=== PATIENT | female | born 1955 | race Hispanic/Latino ===

== ENCOUNTER 2018-05-16 14:58 | Emergency (ER) | payer SELFPAY ==
--- NOTE | 2018-05-16 16:02 | CT ---
HEAD CT WITHOUT CONTRAST: 05/16/18 HISTORY: Trauma. Patient had a TV box fall on her head. COMPARISON: None. FINDINGS: No parenchymal hemorrhage. No extra-axial hematoma. No midline shift. Basilar cisterns are patent. Br ain volume is age appropriate. Cortical henry-white matter differentiation is preserved. Ventricles and sulci are patent and symmetric. Calvarium is intact. Adequate aeration of the sinuses and mastoid air cells. IMPRESSION: No intracranial posttraumatic sequela. POS: [facility]
--- NOTE | 2018-05-16 16:06 | CT ---
CERVICAL SPINE CT WITHOUT CONTRAST: 05/16/18 HISTORY: Trauma. Pain. COMPARISON: None. FINDINGS: No craniocervical dissociation. Lateral masses of C1 and C2 articulate appropriately. Intact odontoid process. The visualized soft tissue neck structures are grossly unremarkable. Upper mediastinum and lung apice s are unremarkable. No significant central canal stenosis or neural foraminal narrowing. Straightening of the normal cerv ical lordosis is presumed to be due to patient position, muscle spasm or cervical collar. Current lisa dy is not tailored to assess for ligamentous injury. Cervical spine vertebral body height is maintained. No fracture. IMPRESSION: No fracture. POS: [facility]
--- NOTE | 2018-05-16 16:14 | CT ---
CT OF THE THORACIC SPINE WITHOUT CONTRAST: 05/16/18 INDICATION: History of trauma where a TV fell on the patient's head 45 minutes prior to arrival. The patient is h aving back pain. COMPARISON: None. 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 No acute fracture or subluxation is evident. The osseous central canal and osseous neural foramina appear patent. There are mild vascular calcific ations incidentally seen involving the thoracic aorta. The visualized lungs are clear. There is diffu se osteopenia. IMPRESSION: No acute osseous abnormality. POS: [facility]
== END 2018-05-16 16:27 | disposition home or self-care (01) ==
LOC: BURERS 14:58
DX: S09.90XA Unspecified injury of head, initial encounter (principal); S16.1XXA Strain of muscle, fascia and tendon at neck level, initial encounter; S29.012A Strain of muscle and tendon of back wall of thorax, initial encounter; E11.9 Type 2 diabetes mellitus without complications; E03.9 Hypothyroidism, unspecified; I10 Essential (primary) hypertension; W20.8XXA Other cause of strike by thrown, projected or falling object, initial encounter
CPT/HCPCS: 70450; 72125; 72128